=== PATIENT | female | born 1975 | race Two or more races ===

== ENCOUNTER 2023-11-22 11:47 | Emergency (ER) | payer OTHER ==
[~2023-11-22] VITALS: Ht 175.3 cm; Wt 78.0 kg
[~2023-11-22 11:47] MED LIST: ZYRTEC10 M3 PO
[2023-11-22] MEDS ORDERED: FAMOtidine 10 MG/ML (4ML VIAL) IV ONE (13:00)
[2023-11-22] MEDS ORDERED: 0.9 % SODIUM CHLORIDE 500 ML IV ONE (13:15)
[2023-11-22] MEDS ORDERED: FAMOtidine 200mg/20ml VIAL ONE (13:18)
[2023-11-22 14:04] LABS: HEMATOCRIT 39.2 % (36.0-45.00); HEMOGLOBIN 13.1 g/dL (12.0-15.00); MEAN CELL VOLUME 86.3 fL (80.00-100.00); MEAN CORPUSCULAR HEMOGLOBIN 28.9 pg (27.00-32.0); MEAN CORPUSCULAR HGB CONC 33.4 g/dl (32.0-36.0); PLATELET COUNT 295 K/uL (150-450); RED BLOOD COUNT 4.54 M/uL (4.00-6.00); RED CELL DISTRIBUTION WIDTH 13.4 % (11.5-14.5)
[2023-11-22 14:34] LABS: ALBUMIN 3.9 gm/dL (3.4-5.0); BILIRUBIN TOTAL 0.51 mg/dL (0.3-1.2); CALCIUM 9.1 mg/dL (8.5-10.1); CREATININE SERUM 0.59 mg/dL (0.55-1.02); GFR 107.89; GLOBULINA 3.7 G/DL (2.4-3.5); POTASSIUM 4.19 mEq/L (3.5-5.1); TOTAL PROTEIN 7.6 gm/dL (6.4-8.2)
[2023-11-22 15:00] LABS: URINE APPEARANCE Clear; URINE BILIRRUBIN Negative (NEGATIVE); URINE BLOOD Negative; URINE COLOR Yellow; URINE GLUCOSE Negative (NEGATIVE); URINE LEUKOCYTE Negative; URINE NITRATE Negative; URINE PROTEIN Negative (NEGATIVE); URINE UROBILINOGEN 0.2 E.U./dl
[2023-11-22 15:03] LABS: URINE BACTERIA 217.9 uL (0.0-1933); URINE EPITHELIAL CELLS 26.4 uL (0.0-38.8); URINE RBC 4.4 uL (0.0-20.8); URINE WBC 7.4 uL (0.0-23.2)
[2023-11-22] MEDS ORDERED: ACETAMINOPHEN 500 MG GEL..CAP PO ONE ×2 (21:52→22:00)
== END 2023-11-23 01:34 | disposition home or self-care (01) ==
LOC: ER 11:48
PROVIDERS: General Practice
DX: D32.9 Benign neoplasm of meninges, unspecified (principal); Z88.8 Allergy status to other drugs, medicaments and biological substances; Z20.822 Contact with and (suspected) exposure to COVID-19
CPT/HCPCS: 70552